=== PATIENT | female | born 1950 | race Caucasian/White ===

== ENCOUNTER → 2016-08-11 | Outpatient (CLI) | payer BC ==
--- NOTE | 2016-08-11 14:00 | REPMRS ---
Patient History The patient states she had a clinical breast exam in 07/2016. Patient is postmenopausal. Family history of ovarian cancer in mother at age 71 and colorectal cancer in maternal aunt at age 80. Taking unspecified hormones for 5 years 5 months. Digital Woman Screen Mammo: August 11, 2016 - Exam #: [id number] Bilateral CC and MLO view(s) were taken. Technologist: Maria C Becerra Technologist Prior study comparison: May 14, 2015, digital woman screen mammo performed at [facility]. April 17, 2014, digital woman screen mammo performed at [facility]. March 07, 2013, bilateral digital mammo screening bilat, performed at [facility]. FINDINGS: There are scattered fibroglandular densities. There has been no change in the appearance of the mammogram from the prior studies. There is a needle biopsy marker clip in the right breast. There is a mild amount of scattered fibroglandular density which is fairly symmetric. There is no interval development of dominant mass, architectural distortion, or clustered microcalcification suggestive of malignancy. ASSESSMENT: BI-RADS/ACR category 1 mammogram. Negative. Recommendation Routine screening mammogram in 1 year (for women over age 40). This mammogram was interpreted with the aid of an FDA-approved computer-aided dectection system. Electronically Signed By: John Lundberg MD 08/11/16 8302
== END ==
LOC: M WHC 12:56
PROVIDERS: ATTEND Family Medicine
DX: Z12.31 Encounter for screening mammogram for malignant neoplasm of breast (principal)

== ENCOUNTER → 2017-08-17 | Outpatient (CLI) | payer BC | LOC: M WHC 12:55 | DX: Z12.31 Encounter for screening mammogram for malignant neoplasm of breast (principal) | CPT/HCPCS: 77067 ==

== ENCOUNTER 2018-07-26 09:53 | Day surgery (SDC) | payer BC ==
[~2018-07-26] VITALS: Ht 152.4 cm; Wt 56.2 kg
[~2018-07-26 09:53] MED LIST: AMLO5TAB6 PO; CALCTAB29 PO; DAILTAB65 PO; DULE100A INH; ESTR1CRE VA; LIDOCAINE 2% INJ 100 MG/5 ML SDV (FOR ANES.) As Ordered ONE; MULT1TAB10 PO; NS 1,000 ML IV ONE; OMEGCAP4 PO; PROPOFOL 200 MG/20 ML VIAL As Ordered ONE; TYLE325T5 PO; ZYRT10CA5 PO
--- NOTE | 2018-07-26 11:29 | ROOR ---
Patient Name: Rachel Chua Procedure Date: 07/26/2018 11:01 AM Date of : 1950 Age: 68 Room: [facility] Gender: Female Note Status: Finalized Procedure: Total Colonoscopy to cecum + Bx. Indications: Chronic ulcerative pancolitis, Disease activity assessment of chronic ulcerative pancolitis Providers: Ulises Beach MD Referring MD: Amilcar Fraser MD Requesting Provider: Medicines: Monitored Anesthesia Care Complications: No immediate complications. Procedure: Pre-Anesthesia Assessment: - The heart rate, respiratory rate, oxygen saturations, blood pressure, adequacy of pulmonary ventilation, and response to care were monitored throughout the procedure. The Colonoscope was introduced through the anus and advanced to the cecum, identified by appendiceal orifice and ileocecal valve. The colonoscopy was performed without difficulty. The patient tolerated the procedure well. The quality of the bowel preparation was excellent. Findings: The perianal and digital rectal examinations were normal. Non-bleeding internal hemorrhoids were found during retroflexion. The hemorrhoids were small and Grade I (internal hemorrhoids that do not prolapse). There is no endoscopic evidence of bleeding or inflammation in the entire colon. Background biopsies were taken for histology with a cold forceps from the ascending colon, transverse colon, descending colon and rectosigmoid colon. These biopsy specimens were sent to Pathology. The exam was otherwise without abnormality on direct and retroflexion views. Impression: - Non-bleeding internal hemorrhoids. - The examination was otherwise normal on direct and retroflexion views. - Background biopsies were taken from the ascending colon, transverse colon, descending colon and rectosigmoid colon. - The exam was otherwise normal to the cecum. Recommendation: - Patient has a contact number available for emergencies. The signs and symptoms of potential delayed complications were discussed with the patient. Return to normal activities tomorrow. Written discharge instructions were provided to the patient. - High fiber diet. - Discharge patient to home. - Continue present medications. - Await pathology results. - Telephone GI clinic for pathology results in 1 week. - Repeat colonoscopy in 5 years for surveillance based on pathology results. - Return to referring physician. - The findings and recommendations were discussed with the patient's family. Ulises Beach MD Ulises Beach MD 07/26/2018 11:29:16 AM Electronically signed by Ulises Beach MD Number of Addenda: 0 Note Initiated On: 07/26/2018 11:01 AM Estimated Blood Loss: Estimated blood loss: none.
[2018-07-26 11:52] VITALS: BP 130/67
== END 2018-07-26 12:03 | disposition home or self-care (01) ==
LOC: M OPP 09:53
PROVIDERS: ATTEND Internal Medicine Gastroenterology
DX: K64.0 First degree hemorrhoids (principal); K51.00 Ulcerative (chronic) pancolitis without complications

== ENCOUNTER → 2018-11-08 | Outpatient (CLI) | payer BC ==
[~2018-11-08] MED LIST changes: -LIDOCAINE 2% INJ 100 MG/5 ML SDV (FOR ANES.) As Ordered ONE; -NS 1,000 ML IV ONE; -PROPOFOL 200 MG/20 ML VIAL As Ordered ONE
--- NOTE | 2018-11-08 14:11 | REPMRS ---
Patient History The patient states she has not had a clinical breast exam in over a year. Patient is postmenopausal. Family history of ovarian cancer at age 71 in mother, colorectal cancer at age 80 in maternal aunt. Benign stereotactic core biopsy. Took unspecified hormones for 6 years 5 months. 3D TOMOSYNTHESIS WAS PERFORMED. The [facility] lifetime risk for breast cancer is 5.0%. Digital Woman Screen Mammo: November 08, 2018 - Exam #: [id number] Bilateral CC and MLO view(s) were taken. Technologist: Kathy Bruno, Technologist Prior study comparison: August 18, 2017, digital woman screen mammo performed at [facility]. August 11, 2016, digital woman screen mammo performed at [facility]. FINDINGS: The breast tissue is heterogeneously dense. This may lower the sensitivity of mammography. There has been no change in the appearance of the mammogram from the prior studies. There is a moderate amount of residual fibroglandular tissue which is fairly symmetric. There is no interval development of dominant mass, areas of architectural distortion, or clustered microcalcification typical of malignancy. Assessment: BI-RADS/ACR category 1 mammogram. Negative Mammogram. Recommendation Routine screening mammogram in 1 year (for women over age 40). This mammogram was interpreted with the aid of an FDA-approved computer-aided dectection system. Electronically Signed By: Javan Pabon MD 11/08/18 [id number]
== END ==
LOC: M WHC 09:48
PROVIDERS: ATTEND Family Medicine
DX: Z12.31 Encounter for screening mammogram for malignant neoplasm of breast (principal)

== ENCOUNTER → 2020-03-07 | Outpatient (CLI) | payer MEDICARE ==
[~2020-03-07] MED LIST changes: +AMLO1TAB24 PO; -AMLO5TAB6 PO
--- NOTE | 2020-03-07 16:10 | REPMRS ---
Patient History The patient states she has not had a clinical breast exam in over a year. Family history of ovarian cancer at age 71 in mother, colorectal cancer at age 80 in maternal aunt. Benign stereotactic core biopsy. Took unspecified hormones for 6 years 5 months. Digital Woman Screen Mammo: March 07, 2020 - Exam #: [id number] Bilateral CC and MLO view(s) were taken. Technologist: Mercedez Yates, Technologist Prior study comparison: November 08, 2018, bilateral digital woman screen mammo performed at [facility]. August 18, 2017, digital woman screen mammo performed at [facility]. August 11, 2016, digital woman screen mammo performed at [facility]. FINDINGS: There are scattered fibroglandular densities. The [employer] volumetric breast density category is:B. There is a needle biopsy marker clip in the right breast. There is a stable nodular density in the left breast unchanged from multiple prior studies. There has been no change in the appearance of the mammogram from the prior studies. There is a mild amount of scattered fibroglandular density which is fairly symmetric. There is no interval development of dominant mass, architectural distortion, or grouped microcalcification suggestive of malignancy. 3-D tomosynthesis shows no additional findings. Assessment: BI-RADS/ACR category 2 mammogram. Benign Findings. Recommendation Routine screening mammogram of both breasts in 1 year (for women over age 40). This patient's [facility] Lifetime Breast Cancer Risk is estimated at 4.7 %. This mammogram was interpreted with the aid of an FDA-approved computer-aided dectection system. Electronically Signed By: John Lundberg MD 03/07/20 [id number]
== END ==
LOC: M WHC 14:12
PROVIDERS: ATTEND Nurse Practitioner Family
DX: Z12.31 Encounter for screening mammogram for malignant neoplasm of breast (principal)

== ENCOUNTER → 2021-04-13 | Outpatient (CLI) | payer MEDICARE | LOC: M WHC 08:14 | PROVIDERS: ATTEND Family Medicine | DX: Z12.31 Encounter for screening mammogram for malignant neoplasm of breast (principal) ==

== ENCOUNTER → 2022-05-26 | Outpatient (CLI) | payer MEDICARE ==
[~2022-05-26] MED LIST changes: -DULE100A INH; +MOME13HF8 INH
== END ==
LOC: M WHC 11:52
PROVIDERS: ATTEND Family Medicine
DX: Z12.31 Encounter for screening mammogram for malignant neoplasm of breast (principal)

== ENCOUNTER → 2022-06-03 | Outpatient (CLI) | payer MEDICARE | LOC: M WHC 08:02 | PROVIDERS: ATTEND Family Medicine | DX: R92.2 Inconclusive mammogram (principal) ==

== ENCOUNTER → 2022-11-29 | Outpatient (CLI) | payer MEDICARE | LOC: M WHC 13:30 | PROVIDERS: ATTEND Family Medicine | DX: D48.60 Neoplasm of uncertain behavior of unspecified breast (principal) ==

== ENCOUNTER → 2023-05-26 | Outpatient (REF) | payer MEDICARE ==
[~2023-05-26] MED LIST changes: +AMLO2.5T3 PO; +BENA1TAB24 PO; +ESTR0.1C5; +VITA100093 PO
== END ==
LOC: M LAB REF 10:30
PROVIDERS: ATTEND Internal Medicine Gastroenterology
DX: R19.7 Diarrhea, unspecified (principal); K62.5 Hemorrhage of anus and rectum; R10.12 Left upper quadrant pain

== ENCOUNTER → 2023-07-20 | Outpatient (REF) | payer MEDICARE | LOC: M LAB REF 10:33 | PROVIDERS: ATTEND Internal Medicine Gastroenterology | DX: A04.72 Enterocolitis due to Clostridium difficile, not specified as recurrent (principal); K51.318 Ulcerative (chronic) rectosigmoiditis with other complication ==

== ENCOUNTER → 2023-08-31 | Outpatient (REF) | payer MEDICARE | LOC: M LAB REF 10:26 | PROVIDERS: ATTEND Internal Medicine Gastroenterology | DX: R19.7 Diarrhea, unspecified (principal) ==

== ENCOUNTER → 2023-09-16 | Outpatient (CLI) | payer MEDICARE | LOC: M WHC 15:25 | PROVIDERS: ATTEND Family Medicine | DX: Z12.31 Encounter for screening mammogram for malignant neoplasm of breast (principal) ==

== ENCOUNTER → 2024-09-28 | Outpatient (CLI) | payer MEDICARE | LOC: M WHC 07:23 | PROVIDERS: ATTEND Family Medicine | DX: Z12.31 Encounter for screening mammogram for malignant neoplasm of breast (principal); M81.0 Age-related osteoporosis without current pathological fracture ==